=== PATIENT | male | born 1960 | race Two or more races ===

== ENCOUNTER 2019-10-07 01:05 | Emergency (ER) | payer BC ==
[2019-10-07 02:09] LABS: ABSOLUTE BASOPHILS # (AUTO) 0.1 10^3/uL (0.0-0.2); ABSOLUTE EOSINOPHILS # (AUTO) 0.5 10^3/uL (0.0-0.6); ABSOLUTE LYMPHOCYTES (AUTO) 2.6 10^3/uL (0.5-4.7); ABSOLUTE MONOCYTES (AUTO) 0.6 10^3/uL (0.1-1.4); BASOPHILS % (AUTO) 0.8 % (0-2); EOSINOPHILS % (AUTO) 6.4 % (0-6); HEMATOCRIT 44.6 % (37.9-51.0); HEMOGLOBIN 14.9 g/dL (13.5-17.0); LYMPHOCYTES % (AUTO) 33.5 % (13-45); MEAN CORPUSCULAR HEMOGLOBIN 27.2 pg (27.0-33.4); MEAN CORPUSCULAR HGB CONC 33.3 g/dL (32.0-36.0); MEAN CORPUSCULAR VOLUME 82 fl (80-97); MONOCYTES % (AUTO) 7.3 % (3-13); PLATELET COUNT 119 10^3/uL (150-450); RED BLOOD COUNT 5.46 10^6/uL (4.35-5.55); RED CELL DISTRIBUTION WIDTH 13.1 % (11.5-14.0); TOTAL CELLS COUNTED % (AUTO) 100 %; WHITE BLOOD COUNT 7.7 10^3/uL (4.0-10.5)
[2019-10-07 02:17] LABS: APPEARANCE,URINE CLEAR; BILIRUBIN,URINE NEGATIVE (NEGATIVE); COLOR,URINE YELLOW; GLUCOSE, URINE NEGATIVE (NEGATIVE); KETONES,URINE NEGATIVE (NEGATIVE); LEUKOCYTE ESTERASE,URINE NEGATIVE (NEGATIVE); NITRITE,URINE NEGATIVE (NEGATIVE); PROTEIN,URINE NEGATIVE (NEGATIVE); URINE SPECIFIC GRAVITY 1.011; UROBILINOGEN,URINE NEGATIVE mg/dL (<2.0)
[2019-10-07 02:24] LABS: ALBUMIN 4.3 g/dL (3.5-5.0); ALKALINE PHOSPHATASE 60 U/L (38-126); ANION GAP 7 (5-19); ASPARTATE AMINO TRANSFERASE 44 U/L (17-59); BLOOD UREA NITROGEN 14 mg/dL (7-20); CALCIUM 9.3 mg/dL (8.4-10.2); CARBON DIOXIDE 29 mmol/L (22-30); CHLORIDE 105 mmol/L (98-107); GLUCOSE 101 mg/dL (75-110); POTASSIUM 4.1 mmol/L (3.6-5.0); TOTAL PROTEIN 7.5 g/dL (6.3-8.2)
[2019-10-07] MEDS ORDERED: ONDANSETRON 4 MG TAB.RAPDIS PO ONE (04:29)
[2019-10-07] MEDS ORDERED: FAMOTIDINE 20 MG TABLET PO ONE (04:29)
[2019-10-07] MEDS ORDERED: SUCRALFATE 1 GM TABLET PO ONE (04:29)
--- NOTE | 2019-10-07 04:30 | ER Document Report ---
ED GI/ - General Chief Complaint: Abdominal Pain Stated Complaint: ABDOMINAL PAIN Time Seen by Provider: 10/07/19 04:23 Notes: Patient is a 58-year-old male that comes emergency department for chief complaint of pain in the upper abdomen. He states for the past 4 days he has had intermittent pain, he states he has frequent heartburn when the pain, he states symptoms are worse when he is lying flat and occasionally after eating. He denies severe pain, vomiting, fever, chest pain, difficulty breathing, or injury. He points to the epigastric area for the location of the pain. He denies any surgeries, he denies alcohol or smoking, denies recreational drugs. He states he started taking Lactaid thinking it would help, he states he has been drinking a lot of coffee up until recently when he stopped to try to help his symptoms. - Related Data Allergies/Adverse Reactions: No Known Allergies Allergy (Unverified 10/07/19 04:41) Past Medical History - General Information source: Patient - Social History Smoking Status: Never Smoker Frequency of alcohol use: None Drug Abuse: None Lives with: Family Family History: Reviewed & Not Pertinent Patient has homicidal ideation: No - Immunizations Immunizations up to date: Yes Hx Diphtheria, Pertussis, Tetanus Vaccination: Yes Review of Systems - Review of Systems Constitutional: No symptoms reported EENT: No symptoms reported Cardiovascular: No symptoms reported Respiratory: No symptoms reported Gastrointestinal: See HPI Genitourinary: No symptoms reported Male Genitourinary: No symptoms reported Musculoskeletal: No symptoms reported Skin: No symptoms reported Hematologic/Lymphatic: No symptoms reported Neurological/Psychological: No symptoms reported Physical Exam - Vital signs Vitals: Temp Pulse Resp BP Pulse Ox 97.8 F 62 20 142/85 H 97 10/07/19 01:12 10/07/19 01:12 10/07/19 01:12 10/07/19 01:12 10/07/19 01:12 - Notes Notes: GENERAL: Alert, interacts well. No acute distress. Patient is healthy and youthful in appearance HEAD: Normocephalic, atraumatic. EYES: Pupils equal, round, and reactive to light. Extraocular movements intact. ENT: Oral mucosa moist, tongue midline. Oropharynx unremarkable. Airway patent. NECK: Full range of motion. Supple. Trachea midline. No lymphadenopathy. LUNGS: Clear to auscultation bilaterally, no wheezes, rales, or rhonchi. No respiratory distress. Non-tender chest wall. HEART: Regular rate and rhythm. No murmur ABDOMEN: Mild epigastric tenderness, otherwise soft, nontender, unremarkable abdomen. No rigidity, distention, or guarding. Bowel sounds present throughout. GENITOURINARY: Deferred EXTREMITIES: Moves all 4 extremities spontaneously. No edema, normal radial and dorsalis pedis pulses bilaterally. No cyanosis. BACK: no cervical, thoracic, lumbar midline tenderness. No saddle anesthesia, normal distal neurovascular exam. Moves all extremities in full range of motion. NEUROLOGICAL: Alert and oriented x3. Normal speech. Cranial nerves II through XII grossly intact. Strength 5/5 in all extremities. PSYCH: Normal affect, normal mood. SKIN: Warm, dry, normal turgor. No rashes or lesions noted. Course - Re-evaluation Re-evalutation: Patient is reporting intermittent epigastric pain with classic symptoms suggesting GERD and gastritis. He has mild epigastric tenderness on exam, symptoms are worse lying flat, he is getting frequent heartburn. EKG without acute findings, troponin negative despite symptoms going on for 4 days, CBC, chemistry, lipase, urinalysis unremarkable. Very low suspicion of ACS or acute abdomen based on his evaluation. Symptoms significantly improved after Carafate, Pepcid, Zofran. Patient already established primary care follow-up in 3 days and has a pending appointment. Patient will be treated for upper abdominal inflammation, discussed expectations, discussed return precautions in detail. Patient states appreciation and agreement, stable and well-appearing at time of discharge. - Vital Signs Vital signs: Temp Pulse Resp BP Pulse Ox 97.4 F 60 14 147/109 H 98 10/07/19 06:15 10/07/19 06:15 10/07/19 06:15 10/07/19 06:15 10/07/19 06:15 - Laboratory Result Diagrams: 10/07/19 01:57 10/07/19 01:57 Laboratory results interpreted by me: 10/07/19 01:57 Plt Count 119 L Eos % (Auto) 6.4 H - EKG Interpretation by Me Additional EKG results interpreted by me: EKG shows sinus rhythm at a rate of 50, QTC of 398, normal axis, no T wave inversions or ST segment changes in consecutive leads. Discharge - Discharge Clinical Impression: Upper abdominal pain Condition: Stable Disposition: HOME, SELF-CARE Additional Instructions: Your symptoms, workup, and examination indicate gastritis/esophagitis (inflammation of your upper gastrointestinal tract). Take Zofran for nausea, take Carafate and Pepcid as prescribed to help treat this, you can take additional Rolaids, Tums, Maalox, etc. if needed. You can take Tylenol for pain. Avoid NSAIDs, alcohol, smoking, caffeine, spicy food. Start with clear fluids, progress to bland diet. Follow-up with primary care for additional evaluation and treatment including possible H. pylori testing. Return if you worsen including uncontrolled vomiting, vomiting blood, black stools, severe pain, fever of 100.4 or greater, or any other concerning or worsening symptoms. Prescriptions: Sucralfate [Carafate 1 gm Tablet] 1 gm PO QID #20 tablet Famotidine [Pepcid 20 mg Tablet] 20 mg PO BID #20 tablet Ondansetron [Zofran Odt 4 mg Tablet] 1 - 2 tab PO Q4H PRN #15 tab.rapdis PRN Reason: For Nausea/Vomiting Forms: Return to Work, Elevated Blood Pressure
[2019-10-07 06:16] VITALS: BP 147/109
--- NOTE | 2019-10-07 09:47 | EKG REPORT ---
SEVERITY:- ABNORMAL ECG - SINUS RHYTHM LEFT VENTRICULAR HYPERTROPHY : Confirmed by: Cruz Spears MD 07-Oct-2019 09:46:35
== END 2019-10-07 06:16 | disposition home or self-care (01) ==
LOC: ER 01:05
DX: R12 Heartburn (principal); R10.816 Epigastric abdominal tenderness
CPT/HCPCS: 93005; 99284; 36415; 83690; 85025; 80053; 81001; 84484; 93010; S0119